=== PATIENT | female | born 1970 | race African-American/Black ===

== ENCOUNTER 2018-11-13 13:45 | Emergency (ER) | payer SELFPAY ==
[2018-11-13] MEDS ORDERED: Sodium Chloride 0.9% 2.5 ML Syringe FLUSH PRN (14:34)
[2018-11-13] MEDS ORDERED: cloNIDine 0.1 MG Tab PO ONE (14:34)
[2018-11-13] MEDS ORDERED: Sodium Chloride 0.9% 10 ML Syringe FLUSH PRN (14:34)
[2018-11-13] MEDS ORDERED: cloNIDine 0.1 MG Tab ONE (14:53)
--- NOTE | 2018-11-13 15:20 | CT ---
Head CT Technique: Multiple axial sections through the brain were obtained. Intravenous contrast was not utilized. Comparison: No previous intracranial imaging is available. Findings: Ventricles along with basal cisterns and sulci over the convexities appear within normal limits for the patient's age. No abnormal parenchymal densities are seen. No evidence of intracranial hemorrhage. No midline shift or mass effect is seen. Bone window settings were reviewed which shows no acute calvarial abnormality. Visualized paranasal sinuses and mastoid sinuses are clear. Impression: Nothing acute is seen on noncontrast head CT exam. Diagnostic code #1 MTDD
[2018-11-13 15:21] LABS: BLOOD UREA NITROGEN,BUN 11 mg/dL (7.0-18.0); CHLORIDE,CL 105 mmol/L (98-107); GLUCOSE RANDOM 132 mg/dL (74-106); POTASSIUM,K 3.2 mmol/L (3.5-5.1); SODIUM,NA 139 mmol/L (136-145)
[2018-11-13] MEDS ORDERED: Bacitracin Oint 1 GM U/D Packet ONE (15:50)
--- NOTE | 2018-11-13 15:56 | EDM.PDOC ---
ED HPI GENERAL MEDICAL PROBLEM - General Chief Complaint: Cardiovascular Problem Stated Complaint: HIGH BP Time Seen by Provider: 11/13/18 13:48 Source of Information: Reports: Patient History Limitations: Reports: No Limitations - History of Present Illness INITIAL COMMENTS - FREE TEXT/NARRATIVE: History of present illness: []She was at work started having a headache and a coworker took her blood pressure and found to be 160s/100. She does not have a history of hypertension. She denies any chest pain or shortness of breath. Review of systems: As per history of present illness and below otherwise all systems reviewed and negative. Past medical history: As per history of present illness and as reviewed below otherwise noncontributory. Surgical history: As per history of present illness and as reviewed below otherwise noncontributory. Social history: No reported history of drug or alcohol abuse. Family history: As per history of present illness and as reviewed below otherwise noncontributory. Physical exam: General: Well developed, well nourished in NAD HEENT: Atraumatic, normocephalic, pupils reactive, negative for conjunctival pallor or scleral icterus, mucous membranes moist, throat clear, neck supple, nontender, trachea midline. Lungs: Clear to auscultation, breath sounds equal bilaterally, chest nontender. Heart: S1S2, regular, negative for clicks, rubs, or JVD. Abdomen: NABS, Soft, nondistended, nontender. Negative for masses or hepatosplenomegaly. Negative for costovertebral tenderness. Pelvis: Stable nontender. Genitourinary: Deferred. Rectal: Deferred. Extremities: Atraumatic, negative for cords or calf pain. Neurovascular unremarkable. Neuro: Awake, alert, oriented. Cranial nerves II through XII unremarkable. Cerebellum unremarkable. Motor and sensory unremarkable throughout. Exam nonfocal. Skin:warm and dry Diagnostics: CT head negative Therapeutics: cIonidine ED Course: stable Impression: Uncontrolled hypertension Prescriptions: None Plan: Take meds as directed, follow up with your primary care physician, return to ER if symptoms worsen or change. Definitive disposition and diagnosis as appropriate pending reevaluation and review of above. headache Pain Score (Numeric/FACES): 10 - Related Data Allergies Allergy/AdvReac Type Severity Reaction Status Date / Time No Known Allergies Allergy Verified 11/13/18 14:15 Home Meds: Home Meds . [No Known Home Meds] 11/13/18 [History] Past Medical History [facility]ER History: Reports: - Past Surgical History Female Surgical History: Reports: Section Social & Family History - Family History Family Medical History: Noncontributory - Tobacco Use Smoking Status *Q: Never Smoker - Recreational Drug Use Recreational Drug Use: No ED ROS GENERAL - Review of Systems Review Of Systems: See Below ED EXAM, GENERAL - Physical Exam Exam: See Below Course - Vital Signs Last Recorded V/S: Last Vital Signs Temp 97.2 F 11/13/18 14:51 Pulse 55 L 11/13/18 14:51 Resp 17 11/13/18 14:51 BP 169/81 H 11/13/18 14:52 Pulse Ox 99 11/13/18 14:51 - Orders/Labs/Meds Orders: Active Orders 24 hr Category Date Time Status Sodium Chloride 0.9% [Saline Flush] Med 11/13/18 14:34 Active 10 ml FLUSH ASDIRECTED PRN Sodium Chloride 0.9% [Saline Flush] Med 11/13/18 14:34 Active 2.5 ml FLUSH ASDIRECTED PRN Saline Lock Insert [OM.PC] Stat Oth 11/13/18 14:32 Ordered Medication Orders Sodium Chloride (Saline Flush) 10 ml FLUSH ASDIRECTED PRN PRN Reason: Keep Vein Open Sodium Chloride (Saline Flush) 2.5 ml FLUSH ASDIRECTED PRN PRN Reason: Keep Vein Open Labs: Laboratory Tests 11/13/18 11/13/18 Range/Units 14:39 14:39 WBC 5.55 (4.0-11.0) K/uL RBC 4.04 L (4.30-5.90) M/uL Hgb 12.8 (12.0-16.0) g/dL Hct 38.7 (36.0-46.0) % MCV 95.8 (80.0-98.0) fL MCH 31.7 (27.0-32.0) pg MCHC 33.1 (31.0-37.0) g/dL RDW Std Deviation 46.4 (28.0-62.0) fl RDW Coeff of Galilea 13 (11.0-15.0) % Plt Count 258 (150-400) K/uL MPV 9.60 (7.40-12.00) fL Neut % (Auto) 62.0 (48.0-80.0) % Lymph % (Auto) 25.2 (16.0-40.0) % Whiteside % (Auto) 9.7 (0.0-15.0) % Eos % (Auto) 2.9 (0.0-7.0) % Baso % (Auto) 0.2 (0.0-1.5) % Neut # (Auto) 3.4 (1.4-5.7) K/uL Lymph # (Auto) 1.4 (0.6-2.4) K/uL Whiteside # (Auto) 0.5 (0.0-0.8) K/uL Eos # (Auto) 0.2 (0.0-0.7) K/uL Baso # (Auto) 0.0 (0.0-0.1) K/uL Nucleated RBC % 0.0 /100WBC Nucleated RBCs # 0 K/uL Sodium 139 (136-145) mmol/L Potassium 3.2 L (3.5-5.1) mmol/L Chloride 105 (98-107) mmol/L Carbon Dioxide 25.0 (21.0-32.0) mmol/L BUN 11 (7.0-18.0) mg/dL Creatinine 1.0 (0.6-1.0) mg/dL Est Cr Clr Drug Dosing 56.91 mL/min Estimated GFR (MDRD) > 60.0 ml/min Glucose 132 H (74-106) mg/dL Calcium 8.3 L (8.5-10.1) mg/dL Total Bilirubin 0.3 (0.2-1.0) mg/dL AST 18 (15-37) IU/L ALT 21 (14-63) IU/L Alkaline Phosphatase 91 (46-116) U/L Total Protein 7.3 (6.4-8.2) g/dL Albumin 3.2 L (3.4-5.0) g/dL Globulin 4.1 H (2.6-4.0) g/dL Albumin/Globulin Ratio 0.8 L (0.9-1.6) Meds: Medications Generic Name Dose Route Start Last Admin Trade Name Freq PRN Reason Stop Dose Admin Sodium Chloride 10 ml 11/13/18 14:34 Saline Flush FLUSH ASDIRECTED PRN Keep Vein Open Sodium Chloride 2.5 ml 11/13/18 14:34 Saline Flush FLUSH ASDIRECTED PRN Keep Vein Open Discontinued Medications Generic Name Dose Route Start Last Admin Trade Name Mary Ann PRN Reason Stop Dose Admin Clonidine HCl 0.2 mg 11/13/18 14:34 11/13/18 14:52 Catapres PO 11/13/18 14:35 0.2 mg ONETIME ONE Administration Clonidine HCl Confirm 11/13/18 14:53 11/13/18 15:34 Catapres Administered 11/13/18 14:54 Not Given Dose 0.1 mg .ROUTE .STK-MED ONE Departure - Departure Time of Disposition: 15:55 Disposition: Home, Self-Care 01 Condition: Good Clinical Impression: Uncontrolled hypertension Referrals: PCP,Unknown [Primary Care Provider] - Additional Instructions: The following information is given to patients seen in the emergency department who are being discharged to home. This information is to outline your options for follow-up care. We provide all patients seen in our emergency department with a follow-up referral. The need for follow-up, as well as the timing and circumstances, are variable depending upon the specifics of your emergency department visit. If you don't have a primary care physician on staff, we will provide you with a referral. We always advise you to contact your personal physician following an emergency department visit to inform them of the circumstance of the visit and for follow-up with them and/or the need for any referrals to a consulting specialist. The emergency department will also refer you to a specialist when appropriate. This referral assures that you have the opportunity for follow-up care with a specialist. All of these measure are taken in an effort to provide you with optimal care, which includes your follow-up. Under all circumstances we always encourage you to contact your private physician who remains a resource for coordinating your care. When calling for follow-up care, please make the office aware that this follow-up is from your recent emergency room visit. If for any reason you are refused follow-up, please contact the [facility] Emergency Department at and asked to speak to the emergency department charge nurse. Take meds as directed, follow up with your primary care physician, return to ER if symptoms worsen or change. [facility] [address] [place] [id number] - My Orders Last 24 Hours: My Active Orders 11/13/18 14:32 Saline Lock Insert [OM.PC] Stat 11/13/18 14:34 Sodium Chloride 0.9% [Saline Flush] 10 ml FLUSH ASDIRECTED PRN Sodium Chloride 0.9% [Saline Flush] 2.5 ml FLUSH ASDIRECTED PRN - Assessment/Plan Last 24 Hours: My Active Orders 11/13/18 14:32 Saline Lock Insert [OM.PC] Stat 11/13/18 14:34 Sodium Chloride 0.9% [Saline Flush] 10 ml FLUSH ASDIRECTED PRN Sodium Chloride 0.9% [Saline Flush] 2.5 ml FLUSH ASDIRECTED PRN
== END 2018-11-13 16:05 | disposition home or self-care (01) ==
LOC: MW.ED 13:45
DX: I10 Essential (primary) hypertension (principal)
CPT/HCPCS: 36415; 70450; 80053; 85025; 99284; A9270

== ENCOUNTER 2023-12-31 06:21 | Inpatient (IN) | payer BC ==
[2023-12-31] MEDS: Scopalamine 1mg/3day Transdermal Patch TRDERM SCH (06:54)
[2023-12-31] MEDS ORDERED: Ropivacaine 49.25 ML, Ketorolac 30 MG, EPINEPHrine 0.5 MG, cloNIDine 80 MCG in Sodium C... INJECT SCH (07:00)
[2023-12-31] MEDS: Lactated Ringers 1,000 ML IV SCH (07:07)
[2023-12-31] MEDS ORDERED: Ropivacaine 0.5% 5 MG/ML 30 ML SDV ONE (07:17)
[2023-12-31] MEDS ORDERED: dexmedeTOMIDine HCl 200 MCG/2 ML SDV ONE (07:18)
[2023-12-31] MEDS ORDERED: Water For Injection, Sterile 20 ML ONE (07:18)
[2023-12-31] MEDS ORDERED: Famotidine 20 MG/2 ML SDV ONE ×2 (07:20→10:58)
[2023-12-31] MEDS ORDERED: fentaNYL 100 MCG/2 ML SDV ONE (07:23)
[2023-12-31] MEDS ORDERED: EPINEPHrine 1 MG/1 ML Amp ONE (07:24)
[2023-12-31] MEDS: Famotidine 20 MG/2 ML SDV IVPUSH SCH (07:25)
[2023-12-31] MEDS ORDERED: Lidocaine 2% 5 ML SDV ONE (07:27)
[2023-12-31] MEDS ORDERED: Albuterol 0.083% 2.5 MG/3 ML Neb Soln NEB PRN (07:33)
[2023-12-31] MEDS ORDERED: Phenylephrine HCl In 0.9% NaCl 1 MG/10 ML Syringe IVPUSH PRN (07:33)
[2023-12-31] MEDS ORDERED: HYDROmorphone 1 MG/ML Syringe IVPUSH PRN (07:33)
[2023-12-31] MEDS ORDERED: fentaNYL 50 MCG/ML SDV IVPUSH PRN (07:33)
[2023-12-31] MEDS ORDERED: Ondansetron 4 MG/2 ML SDV IVPUSH PRN ×2 (07:33→10:54)
[2023-12-31] MEDS ORDERED: Metoclopramide 10 MG/2 ML SDV IVPUSH PRN (07:33)
[2023-12-31] MEDS ORDERED: Morphine 2 MG/ML SYRINGE IVPUSH PRN ×2 (07:33→10:54)
[2023-12-31] MEDS ORDERED: Naloxone 0.4 MG/ML SDV IVPUSH PRN (07:33)
[2023-12-31] MEDS ORDERED: Ketamine 500 mg/10 ML MDV ONE (07:44)
[2023-12-31] MEDS ORDERED: ceFAZolin 2 GM in Sodium Chloride 0.9% 50 ML IV SCH (08:00)
[2023-12-31] MEDS ORDERED: propofoL 50 ML ONE (08:18)
[2023-12-31] MEDS ORDERED: Ketamine HCL/NACL, ISO-OSM 50 MG/5 ML Syringe ONE ×2 (08:20→08:35)
[2023-12-31] MEDS ORDERED: ceFAZolin 2 GM Vial ONE (08:21)
[2023-12-31] MEDS ORDERED: ceFAZolin 1 GM Vial ONE (08:26)
[2023-12-31] MEDS ORDERED: Tranexamic Acid 1,000 MG/10 ML Vial ONE (08:29)
[2023-12-31] MEDS ORDERED: ePHEDrine 50 MG/ML SDV ONE (09:09)
[2023-12-31] MEDS ORDERED: Sodium Chloride 0.9% 2.5 ML Syringe FLUSH PRN (10:54)
[2023-12-31] MEDS ORDERED: Sodium Chloride 0.9% 10 ML Syringe FLUSH PRN (10:54)
[2023-12-31] MEDS ORDERED: diphenhydrAMINE 25 MG Cap PO PRN (10:54)
[2023-12-31] MEDS ORDERED: traMADol 50 MG Tab PO PRN ×2 (10:54)
[2023-12-31] MEDS ORDERED: oxyCODONE 5 MG Tab PO PRN (10:54)
[2023-12-31] MEDS ORDERED: Metoclopramide 10 MG/2 ML SDV ONE (11:06)
[2023-12-31] MEDS ORDERED: Dexamethasone 4 MG/ML 5 ML MDV ONE (11:06)
[2023-12-31] MEDS ORDERED: Ondansetron 4 MG/2 ML SDV ONE (11:06)
[2023-12-31 13:29] LABS: BASOPHILS ABSOLUTE AUTO 0.01 K/uL (0.00-0.20); BASOPHILS PERCENT AUTO 0.1 % (0.0-1.0); EOSINOPHILS ABSOLUTE AUTO 0.05 K/uL (0.00-0.45); EOSINOPHILS PERCENT AUTO 0.6 % (0.0-6.0); HEMATOCRIT 36.9 % (37.0-47.0); HEMOGLOBIN 12.6 g/dL (12.0-16.0); IMMATURE GRAN ABSOLUTE AUTO 0.05 K/uL (0.00-0.05); IMMATURE GRAN PERCENT AUTO 0.6 % (0.0-0.4); LYMPHOCYTES ABSOLUTE AUTO 0.94 K/uL (1.00-4.80); LYMPHOCYTES PERCENT AUTO 11.3 % (24.0-44.0); MEAN CORPUSCULAR HEMOGLOBIN 32.6 pg (28.0-32.0); MEAN CORPUSCULAR HGB CONC 34.1 g/dL (32.0-36.0); MEAN CORPUSCULAR VOLUME 95.6 fL (83.0-99.0); MEAN PLATELET VOLUME 9.5 fL (9.4-12.3); MONOCYTES ABSOLUTE AUTO 0.26 K/uL (0.00-0.80); MONOCYTES PERCENT AUTO 3.1 % (0.0-8.0); NEUTROPHILS ABSOLUTE AUTO 7.04 K/uL (1.80-7.70); NEUTROPHILS PERCENT AUTO 84.3 % (41.0-71.0); PLATELET COUNT,PLT 206 K/uL (150-400); RED BLOOD CELL COUNT 3.86 M/uL (4.10-5.30); WHITE BLOOD CELL COUNT,WBC 8.35 K/uL (3.9-11.3)
[2023-12-31] MEDS: Ketorolac 30 MG/ML SDV IVPUSH SCH (13:36)
[2023-12-31] MEDS: Acetaminophen 325 MG Tab PO SCH (13:43)
[2023-12-31 13:54] LABS: CALCIUM 8.3 mg/dL (8.5-10.1); CARBON DIOXIDE,CO2 27.7 mmol/L (21.0-32.0); CREATININE 0.9 mg/dL (0.6-1.0); EST CRCL DRUG DOSING (CG) 65.05 mL/min; MAGNESIUM 1.6 mg/dL (1.8-2.4); POTASSIUM,K 3.4 mmol/L (3.5-5.1)
[2023-12-31] MEDS: ceFAZolin 2 GM in Sodium Chloride 0.9% 50 ML IV SCH (15:57)
[2023-12-31] MEDS: Aspirin 325 MG Tab PO SCH (16:32)
[2023-12-31] MEDS: Magnesium Sulfate/Water Premix 2 GM in Premix Bag 1 BAG IV ONE (16:42)
[2023-12-31] MEDS: Docusate Sodium 100 MG Cap PO SCH (21:20)
[2024-01-01 05:59] LABS: HEMATOCRIT 34.1 % (37.0-47.0); HEMOGLOBIN 11.6 g/dL (12.0-16.0)
[2024-01-01] MEDS ORDERED: Ibuprofen 800 MG Tab PO PRN (09:00)
[2024-01-01] MEDS: Losartan 50 MG Tab PO SCH (09:32)
[2024-01-01] MEDS: Famotidine 20 MG Tab PO SCH (09:35)
[2024-01-01] MEDS: Hydrochlorothiazide 12.5 MG Cap PO SCH (09:36)
[2024-01-01] MEDS: Polyethylene Glycol 3350 Powder 17 GM Packet PO SCH (09:37)
[2024-01-01] MEDS: oxyCODONE 5 MG Tab PO PRN (14:27)
== END 2024-01-01 15:30 | disposition home or self-care (01) | DRG 326 ==
LOC: MW.SDS 06:21 → MW.MS 12:32
PROVIDERS: ADMIT Orthopaedic Surgery; ATTEND Orthopaedic Surgery
PROC: 0SRC069 Replacement of Right Knee Joint with Oxidized Zirconium on Polyethylene Synthetic Substitute, Cemented, Open Approach (ICD-10-PCS; principal; 2023-12-31 08:00)
DX: M17.12 Unilateral primary osteoarthritis, left knee (principal); M17.11 Unilateral primary osteoarthritis, right knee; G47.00 Insomnia, unspecified; E66.9 Obesity, unspecified; H54.7 Unspecified visual loss; I10 Essential (primary) hypertension; Z79.82 Long term (current) use of aspirin; Z68.39 Body mass index [BMI] 39.0-39.9, adult; Z96.651 Presence of right artificial knee joint; Z79.899 Other long term (current) drug therapy
CPT/HCPCS: 36415; 73560-26-RT; 73560-RT; 80048; 83735; 85014; 85018; 85025; 86850; 86900; 86901; 97110-GP; 97161-GP; A9270-GY; C1776; J0131; J0171; J0690; J0735; J1100; J1885; J2405; J2704; J2765; J2795; J3010; J3475; J3490; J7120

== ENCOUNTER 2024-02-10 11:41 | Emergency (ER) | payer BC | END 2024-02-10 13:20 | disposition home or self-care (01) | LOC: MW.ED 11:41 | DX: M71.21 Synovial cyst of popliteal space [Baker], right knee (principal); G62.9 Polyneuropathy, unspecified; I10 Essential (primary) hypertension; E66.9 Obesity, unspecified; Z79.899 Other long term (current) drug therapy; Z75.8 Other problems related to medical facilities and other health care; Z68.41 Body mass index [BMI] 40.0-44.9, adult | CPT/HCPCS: 93971-26-RT; 93971-RT; 99284 ==